=== PATIENT | male | born 1965 | race Caucasian/White ===

== ENCOUNTER 2017-02-25 13:19 | Emergency (ER) | payer OTHER ==
[~2017-02-25 13:19] MED LIST: ALLO100; GLUCTAB PO; LORT7.5T3 PO; NAPR550 PO; NEXI40CA PO; ONDA1TAB16 PO; ZOCO40TA PO
[2017-02-25 13:21] VITALS: BP 135/79; PULSE 118; RESP 24; TEMP 97.7; O2SAT 97
--- NOTE | 2017-02-25 13:44 | PD ---
Physical Exam Date Seen by Provider: February 25, 2017 Time Seen by Provider: 13:38 Narrative 51 y/o male presents with Hx. oral surgery this am. Here with C/O ongoing left lower dental pain and swelling as well as diaphoresis, shaking, and reports of difficulty breathing and delerium. Pain is 9/10. No Hx Heart Disease. Type 2 DM. Glucose 187 per Evac. V/S Stable Awaiting Bed Placement. Data Data Last Documented VS Vital Signs Date Time Temp Pulse Resp B/P Pulse Ox O2 Delivery O2 Flow Rate FiO2 02/25/17 13:21 97.7 118 24 135/79 97 Room Air [facility] Medical Record Reviewed: Yes Supervised Visit with ELIZABETH: Yes Condition: Stable Karan Horner February 25, 2017 13:44
[2017-02-25] MEDS ORDERED: SODIUM CHLOR 0.9% 1000 ML INJ 1,000 ML IV SCH (14:13)
[2017-02-25] MEDS ORDERED: KETOROLAC TROMETHAMINE 30 MG/ML (IVP) VIAL IV PUSH ONE (14:15)
--- NOTE | 2017-02-25 15:14 | PD ---
HPI Chief Complaint: Oral / Dental Pain or Problem Time Seen by Provider: 15:09 Travel History International Travel<30 days: No Contact w/Intl Traveler<30days: No Traveled to known affect area: No History of Present Illness HPI 51-year-old male that presents to the ED for evaluation of dental pain, diaphoresis and warmness. Patient has a history of recent dental infection with extraction today. Patient went to the dentist last week and was started on amoxicillin for extraction today. Patient apparently had a dental extraction of a tooth that was infected. Per patient and family and they were concerned because patient was not medicated and he was awake as well as felt most of the procedure. Patient stated that he was having a lot of pain and he was able to get home when he got home he took 2 of the Lortabs and he started feeling diaphoretic as well as feeling hot. Patient had episode where he was more lethargic and tired. Family called the ambulance and ambulance presented to the house and do an evaluation of the time he felt okay and preferred to come here by car. Patient came here to get evaluated for this. Pain stays mainly on the left lower jaw is 10 out of 10. Allergies to Lipitor and Percocet. PFSH Past Medical History Blood Disorders: No Cancer: No Cardiovascular Problems: Yes High Cholesterol: Yes Diabetes: Yes Diminished Hearing: No Endocrine: Yes Gastrointestinal Disorders: Yes GERD: Yes Genitourinary: Yes Headaches: Yes (CURRENTLY) Immune Disorder: No Kidney Stones: Yes (CURRENTLY) Musculoskeletal: No Neurologic: Yes Psychiatric: No Reproductive: No Respiratory: No Tetanus Vaccination: < 5 Years Past Surgical History AICD: No Arteriovenous Shunt: No Genitourinary Surgery: Yes (STENT FOR KIDNEY STONE - REMOVAL OF STONE) Insulin Pump: No Joint Replacement: No Pacemaker: No Other Surgery: Yes (LEFT KIDNEY STENT PLACED 03/18/09 THEN REMOVED 03/23/09) Social History Alcohol Use: No Tobacco Use: Yes Substance Use: No Allergies-Medications (Allergen,Severity, Reaction): Coded Allergies: Lipitor (Verified Allergy, Severe, LIVER PROBLEMS, 02/25/17) Percocet (Verified Adverse Reaction, Severe, HALLUCINATION, 02/25/17) Reported Meds & Prescriptions Reported Meds & Active Scripts Active Magic Mouthwash Adult Liq (Multi-Ingredient Mouthwash/Gargle) 120 Ml Susp 5 Ml SWISH-SWAL ACHS Each 5 mL contains: Nystatin 200,000 units, Diphenhydramine 4.25 mg, Viscous Lidocaine 10 mg, Mahmood syrup 0.8 mL Ibuprofen 800 Mg Tab 800 Mg PO Q8H PRN Clindamycin (Clindamycin HCl) 150 Mg Cap 300 Mg PO Q6H 10 Days Lortab 7.5/500 (Acetaminophen/Hydrocodone Bitart) Tab 1 Tab PO Q4-6HPRN FOR PAIN Zofran Tab (Ondansetron HCl) 4 Mg Tab 4 Mg PO Q6-8HPRN Anaprox Ds (Naproxen Sodium) 550 Mg Tab 1 Tab PO BIDPRN Reported Nexium (Esomeprazole Magnesium) 40 Mg Cap 40 Mg PO DIRECTED EVERY 2 DAYS Zyloprim (Allopurinol) 100 Mg Tab 0 UNKNOWN DOSE Glucophage XR 24 HR (Metformin HCl) 500 Mg Tab 500 Mg PO BID Zocor 40 mg (Simvastatin) 40 Mg Tab 80 Mg PO DAILY Review of Systems Except as stated in HPI: all other systems reviewed are Neg Physical Exam Narrative GENERAL: SKIN: Warm and dry. HEAD: Atraumatic. Normocephalic. EYES: Pupils equal and round. No scleral icterus. No injection or drainage. ENT: No nasal bleeding or discharge. Mucous membranes pink and moist. Tongue is midline. No blood deviation. Dental: Tongue is midline. No uvula deviation. Patient does have a cavity where the tooth was extracted with no active bleeding on the left lower jaw on the second molar. No obvious deformity noted. Patient does have swelling noted on the left lower jaw. Tender to palpation in this area. No lymphadenopathy noted. Very tender to touch in this area. NECK: Trachea midline. No JVD. CARDIOVASCULAR: Regular rate and rhythm. No murmurs, S3, S4. RESPIRATORY: No accessory muscle use. Clear to auscultation. Breath sounds equal bilaterally. GASTROINTESTINAL: Abdomen soft, non-tender, nondistended. Hepatic and splenic margins not palpable. MUSCULOSKELETAL: Extremities without clubbing, cyanosis, or edema. No obvious deformities. Full range of motion of the upper and lower extremities bilaterally. 2+ pulses bilaterally. NEUROLOGICAL: Awake and alert. No obvious cranial nerve deficits. Motor grossly within normal limits. Five out of 5 muscle strength in the arms and legs. Normal speech. PSYCHIATRIC: Appropriate mood and affect; insight and judgment normal. Data Data Last Documented VS Vital Signs Date Time Temp Pulse Resp B/P Pulse Ox O2 Delivery O2 Flow Rate FiO2 02/25/17 17:40 88 18 128/75 99 Room Air 02/25/17 13:21 97.7 Orders Complete Blood Count With Diff (02/25/17 14:13) Basic Metabolic Panel (Bmp) (02/25/17 14:13) Blood Culture (02/25/17 14:13) C-Reactive Protein (Crp) (02/25/17 14:13) Magnesium (Mg) (02/25/17 14:13) Iv Access Insert/Monitor (02/25/17 14:13) Ct Facial Bones W Iv Contrast (02/25/17 ) Ketorolac Inj (Toradol Inj) (02/25/17 14:15) Sodium Chlor 0.9% 1000 Ml Inj (Ns 1000 M (02/25/17 14:13) Morphine Inj (Morphine Inj) (02/25/17 15:30) Ondansetron Inj (Zofran Inj) (02/25/17 15:30) Iohexol 350 Inj (Omnipaque 350 Inj) (02/25/17 16:36) Clindamycin Inj (Cleocin Inj) (02/25/17 17:00) Electrocardiogram (02/25/17 ) Labs Laboratory Tests Test 02/25/17 14:40 White Blood Count 8.3 TH/MM3 Red Blood Count 4.55 MIL/MM3 Hemoglobin 14.2 GM/DL Hematocrit 42.8 % Mean Corpuscular Volume 93.9 FL Mean Corpuscular Hemoglobin 31.2 PG Mean Corpuscular Hemoglobin 33.3 % Concent Red Cell Distribution Width 13.8 % Platelet Count 241 TH/MM3 Mean Platelet Volume 7.3 FL Neutrophils (%) (Auto) 92.1 % Lymphocytes (%) (Auto) 5.6 % Monocytes (%) (Auto) 1.6 % Eosinophils (%) (Auto) 0.3 % Basophils (%) (Auto) 0.4 % Neutrophils # (Auto) 7.6 TH/MM3 Lymphocytes # (Auto) 0.5 TH/MM3 Monocytes # (Auto) 0.1 TH/MM3 Eosinophils # (Auto) 0.0 TH/MM3 Basophils # (Auto) 0.0 TH/MM3 CBC Comment DIFF FINAL Differential Comment Sodium Level 138 MEQ/L Potassium Level 3.3 MEQ/L Chloride Level 105 MEQ/L Carbon Dioxide Level 24.4 MEQ/L Anion Gap 9 MEQ/L Blood Urea Nitrogen 10 MG/DL Creatinine 0.88 MG/DL Estimat Glomerular Filtration 91 ML/MIN Rate Random Glucose 190 MG/DL Calcium Level 9.3 MG/DL Magnesium Level 1.7 MG/DL C-Reactive Protein 8.75 MG/DL MDM Medical Decision Making Medical Screen Exam Complete: Yes Emergency Medical Condition: Yes Medical Record Reviewed: Yes Interpretation(s) CBC & BMP Diagram 02/25/17 14:[address] 02/25/17 0000 Signed Impressions: Service Date/Time: Saturday, February 25, 2017 16:27 - CONCLUSION: Nonspecific soft tissue swelling in the soft tissues of the left side of the face. Dipak Mansfield MD CRP of 8 Differential Diagnosis Tooth infection versus dental extraction versus postop pain versus postop side effect versus dental abscess versus osteomyelitis Narrative Course 51-year-old male that presents to the ED for evaluation of dental pain and diaphoresis after procedure. Patient was properly examined and was found to have signs and symptoms of unclear etiology. He is very sensitive to touch in that area. Per patient his been taking amoxicillin before the procedure. Per patient and family he was not medicated before getting the tooth extracted. Unclear as to why. Patient apparently had an episode of diaphoresis, lethargy and severe pain on the left lower jaw since having the procedure. At this time I recommend labs and imaging. Patient is in agreement with this. Patient was given Toradol and IV fluids. Patient was given IV clindamycin as well. Labs and imaging chem essentially unremarkable other than for elevated CRP. Was able to count within normal limits. My attending Dr. Wallace was made aware of all findings and evaluate the patient and agrees with discharge. Family agrees to this plan as well. Patient will be sent home with prescriptions for clindamycin, ibuprofen, Magic mouthwash. Patient was told to follow up with dentist. If he does not like the dentist that he went to he should find anyone. Follow with PCP. See ED if worsening symptoms. Diagnosis Primary Impression: Post-operative pain Additional Impression: Dental abscess Patient Instructions: Narcotic given in the ED, General Instructions Additional Instructions: Ice to the area. Stop the amoxicillin, take clindamycin which will cover for more bacteria. Follow-up with dentist, if you are concerned about your dentist , I recommend you switch to someone else. See ED worsening symptoms. Take medications as prescribed. Med/Other Pt SpecificInfo: Prescription(s) given Scripts Wsuecskg-Muamoimmddmaxyt-Cujwcjecs Liq (Magic Mouthwash Adult Liq)120 Ml Susp5 Ml SWISH-SWAL ACHS #120 ML Each 5 mL contains: Nystatin 200,000 units, Diphenhydramine 4.25 mg, Viscous Lidocaine 10 mg, Mahmood syrup 0.8 mL Prov:Matias Yoo MD 02/25/17 Ibuprofen 800 Mg [id number] Mg PO Q8H PRN (Pain/Inflammation) #30 TAB Prov:Matias Yoo MD 02/25/17 Clindamycin 150 Mg [id number] Mg PO Q6H 10 Days Prov:Matias Yoo MD 02/25/17 Disposition: 01 DISCHARGE HOME Condition: Stable Zackery Hylton February 25, 2017 15:14
[2017-02-25 15:20] LABS: AUTOMATED NEUTROPHIL # 7.6 TH/MM3 (1.8-7.7); BASOPHIL % 0.4 % (0.0-2.0); EOSINOPHIL % 0.3 % (0.0-4.0); HEMATOCRIT 42.8 % (39.0-51.0); HEMO FLAGS DIFF FINAL; LYMPH % 5.6 % (9.0-44.0); LYMPHOCYTE # 0.5 TH/MM3 (1.0-4.8); MEAN CELL VOLUME 93.9 FL (80.0-100.0); MEAN CORPUSCULAR HEMOGLOBIN 31.2 PG (27.0-34.0); MEAN CORPUSCULAR HGB CONC 33.3 % (32.0-36.0); MONO % 1.6 % (0.0-8.0); NEUT % 92.1 % (16.0-70.0); PLATELET COUNT 241 TH/MM3 (150-450); RED BLOOD COUNT 4.55 MIL/MM3 (4.50-5.90); RED CELL DISTRIBUTION WIDTH 13.8 % (11.6-17.2); WHITE BLOOD COUNT 8.3 TH/MM3 (4.0-11.0)
[2017-02-25 15:30] LABS: BICARBONATE 24.4 MEQ/L (21.0-32.0); MAGNESIUM 1.7 MG/DL (1.5-2.5); POTASSIUM 3.3 MEQ/L (3.5-5.1)
[2017-02-25] MEDS ORDERED: MORPHINE SULFATE 4 MG/ML INJ IV PUSH ONE (15:30)
[2017-02-25] MEDS ORDERED: ONDANSETRON HCL 4 MG/2 ML VIAL IV PUSH ONE (15:30)
[2017-02-25] MEDS ORDERED: IOHEXOL 350 MG/ML 10 ML VIAL (for RAD DIAG) IV ONE (16:36)
--- NOTE | 2017-02-25 16:56 | RADRPT ---
EXAM DATE/TIME: 02/25/2017 16:27 [facility] COMPARISON: No previous studies available for comparison. INDICATIONS : Left facial swelling after tooth extraction. IV CONTRAST: 60 cc Omnipaque 350 (iohexol) IV RADIATION DOSE: 36.49 CTDIvol (mGy) MEDICAL HISTORY : Cardiovascular disease. Diabetes mellitus type 2. SURGICAL HISTORY : None. ENCOUNTER: Initial ACUITY: 1 day PAIN SCALE: 10/10 LOCATION: Left mandible TECHNIQUE: Volumetric scanning of the facial bones was performed. Using automated exposure control and adjustme nt of the mA and/or kV according to patient size, radiation dose was kept as low as reasonably achiev able to obtain optimal diagnostic quality images. FINDINGS: There is nonspecific soft tissue changes consist with inflammation involving the soft tissues along t he left side of the face. Patient is status post removal of one of the left lower mandible teeth. No loculated fluid collection is seen to suggest an abscess. The bony structures are grossly intact. The paranasal sinuses are grossly clear. No air-fluid levels are demonstrated. There is nasal septal dev iation to the right. CONCLUSION: Nonspecific soft tissue swelling in the soft tissues of the left side of the face. Dipak Mansfield MD on February 25, 2017 at 16:51 Board Certified Radiologist. This report was verified electronically.
[2017-02-25] MEDS ORDERED: CLINDAMYCIN INJ 600 MG in SODIUM CHLORIDE 0.9% INJ 100 ML IV ONE (17:00)
[2017-02-25] MEDS ORDERED: MAGICADU2 SWISH-SWAL (17:27)
[2017-02-25] MEDS ORDERED: CLIN1CAP5 PO (17:27)
[2017-02-25] MEDS ORDERED: IBUP800T23 PO (17:27)
[2017-02-25 17:40] VITALS: BP 128/75; PULSE 88; RESP 18; O2SAT 99
--- NOTE | 2017-02-25 18:10 | PD ---
Physical Exam Date Seen by Provider: February 25, 2017 Time Seen by Provider: 17:00 Narrative I, Dr. Yoo, have reviewed the advance practice practitioner's documentation and am in agreement, met with the patient face to face, made the diagnosis, and the medical decision making was done by me. *My assessment and Findings: Patient seen and evaluated with PA, please see previous notes for further details. Here after dental extraction complaining of left facial pain, swelling, having tingling and numbness and shortness of breath intermittently. EKG shows NSR Laboratory Tests Test 02/25/17 14:40 Neutrophils (%) (Auto) 92.1 % (16.0-70.0) Lymphocytes (%) (Auto) 5.6 % (9.0-44.0) Lymphocytes # (Auto) 0.5 TH/MM3 (1.0-4.8) Potassium Level 3.3 MEQ/L (3.5-5.1) Random Glucose 190 MG/DL (74-106) C-Reactive Protein 8.75 MG/DL (0.00-0.30) Last [address] 02/25/17 0000 Signed Impressions: Service Date/Time: Saturday, February 25, 2017 16:27 - CONCLUSION: Nonspecific soft tissue swelling in the soft tissues of the left side of the face. Dipak Mansfield MD EKG did not show any signs of dysrhythmias. Vital signs are stable in the ER. CAT scan shows some soft tissue swelling in the left side the face after tooth extraction, likely secondary to recent dental procedure. Lab work did not indicate significant leukocytosis. At this point, I suspect that some of this may be secondary to the dental infection. IV antibiotics were given in the ER and cultures were drawn. At this point, I have talked to the patient regarding findings and admission versus outpatient antibiotic therapy. Considering his current vital signs, and the fact I do not see significant edema in the face and obvious signs of facial cellulitis, my plan would be to give him further by mouth antibiotics and have him follow-up closely with primary care physician and dentist regarding this issue. Return for any worsening in symptoms as necessary. The plan has discussed with him and his significant other and they state understanding. Data Data Last Documented VS Vital Signs Date Time Temp Pulse Resp B/P Pulse Ox O2 Delivery O2 Flow Rate FiO2 02/25/17 17:40 88 18 128/75 99 Room Air 02/25/17 13:21 97.7 Orders Complete Blood Count With Diff (02/25/17 14:13) Basic Metabolic Panel (Bmp) (02/25/17 14:13) Blood Culture (02/25/17 14:13) C-Reactive Protein (Crp) (02/25/17 14:13) Magnesium (Mg) (02/25/17 14:13) Iv Access Insert/Monitor (02/25/17 14:13) Ct Facial Bones W Iv Contrast (02/25/17 ) Ketorolac Inj (Toradol Inj) (02/25/17 14:15) Sodium Chlor 0.9% 1000 Ml Inj (Ns 1000 M (02/25/17 14:13) Morphine Inj (Morphine Inj) (02/25/17 15:30) Ondansetron Inj (Zofran Inj) (02/25/17 15:30) Iohexol 350 Inj (Omnipaque 350 Inj) (02/25/17 16:36) Clindamycin Inj (Cleocin Inj) (02/25/17 17:00) Electrocardiogram (02/25/17 ) Labs Laboratory Tests Test 02/25/17 14:40 White Blood Count 8.3 TH/MM3 Red Blood Count 4.55 MIL/MM3 Hemoglobin 14.2 GM/DL Hematocrit 42.8 % Mean Corpuscular Volume 93.9 FL Mean Corpuscular Hemoglobin 31.2 PG Mean Corpuscular Hemoglobin 33.3 % Concent Red Cell Distribution Width 13.8 % Platelet Count 241 TH/MM3 Mean Platelet Volume 7.3 FL Neutrophils (%) (Auto) 92.1 % Lymphocytes (%) (Auto) 5.6 % Monocytes (%) (Auto) 1.6 % Eosinophils (%) (Auto) 0.3 % Basophils (%) (Auto) 0.4 % Neutrophils # (Auto) 7.6 TH/MM3 Lymphocytes # (Auto) 0.5 TH/MM3 Monocytes # (Auto) 0.1 TH/MM3 Eosinophils # (Auto) 0.0 TH/MM3 Basophils # (Auto) 0.0 TH/MM3 CBC Comment DIFF FINAL Differential Comment Sodium Level 138 MEQ/L Potassium Level 3.3 MEQ/L Chloride Level 105 MEQ/L Carbon Dioxide Level 24.4 MEQ/L Anion Gap 9 MEQ/L Blood Urea Nitrogen 10 MG/DL Creatinine 0.88 MG/DL Estimat Glomerular Filtration 91 ML/MIN Rate Random Glucose 190 MG/DL Calcium Level 9.3 MG/DL Magnesium Level 1.7 MG/DL C-Reactive Protein 8.75 MG/DL [facility] Medical Record Reviewed: Yes Supervised Visit with ELIZABETH: Yes Diagnosis Primary Impression: Post-operative pain Additional Impression: Dental abscess Patient Instructions: General Instructions, Narcotic given in the ED Additional Instruction: Ice to the area. Stop the amoxicillin, take clindamycin which will cover for more bacteria. Follow-up with dentist, if you are concerned about your dentist , I recommend you switch to someone else. See ED worsening symptoms. Take medications as prescribed. Scripts Aujtnkjb-Jhuosriftjiserm-Zklixfzzi Liq (Magic Mouthwash Adult Liq)120 Ml Susp5 Ml SWISH-SWAL ACHS #120 ML Each 5 mL contains: Nystatin 200,000 units, Diphenhydramine 4.25 mg, Viscous Lidocaine 10 mg, Mahmood syrup 0.8 mL Prov:Matias Yoo MD 02/25/17 Ibuprofen 800 Mg [id number] Mg PO Q8H PRN (Pain/Inflammation) #30 TAB Prov:Matias Yoo MD 02/25/17 Clindamycin 150 Mg [id number] Mg PO Q6H 10 Days Prov:Matias Yoo MD 02/25/17 Disposition: 01 DISCHARGE HOME Condition: Stable Matias Yoo MD February 25, 2017 18:10
--- NOTE | 2017-02-26 14:44 | EKG ---
Date Performed: 02/25/2017 Time Performed: 18:00:33 PTAGE: 51 years EKG: Sinus rhythm NONSPECIFIC T-WAVE ABNORMALITY BORDERLINE ECG Compared to PREVIOUS TRACING sinus rate has slowed PREVIOUS TRACIN03/27/2009 06.53 DOCTOR: Raghavendra Curiel Interpretating Date/Time 02/26/2017 14:43:35
== END 2017-02-25 18:30 | disposition home or self-care (01) ==
LOC: NEPE 13:19
DX: G89.18 Other acute postprocedural pain (principal); K04.7 Periapical abscess without sinus; E78.00 Pure hypercholesterolemia, unspecified; E11.9 Type 2 diabetes mellitus without complications; K21.9 Gastro-esophageal reflux disease without esophagitis; Z79.899 Other long term (current) drug therapy
CPT/HCPCS: 70487; 80048; 83735; 85025; 86140; 87040; 87076; 87185; 87205; 93005; 96361; 96365; 96375; 99284; J1885; J7030; Q9967